=== PATIENT | male | born 1950 | race Caucasian/White ===

== ENCOUNTER → 2016-12-31 | Day surgery (SDC) | payer MEDICARE ==
[~2016-12-31] VITALS: Ht 182.9 cm; Wt 79.4 kg
[~2016-12-31] MED LIST: FOLIC ACID1 M1 PO; LEVOXYL75 MCG PO; METOPROLOL SUCC25 M1 PO; SIMVASTATIN40 M1 PO
--- NOTE | 2016-12-31 11:54 | Operative Report ---
Operative/Inv Procedure Report Surgery Date: 12/31/16 Name of Procedure: Laparoscopic left inguinal hernia repair Pre-Operative Diagnosis: Left inguinal hernia Post-Operative Diagnosis: Same Estimated Blood Loss: scant Surgeon/Lacing Operator: PRICE ROLAND,BRIGIDA Chang/Qing PRIETO Anesthesia: general endotracheal tube Implants: Parietex mesh Operative/Procedure Note Note: After consent patient brought to the operating room laid supine. Gen. anesthesia was obtained and his abdomen was prepped and draped. Skin below the umbilicus was infiltrated with local anesthesia a transverse incision made sharply. We dissected to the left-sided rectus fascia and incised transversely. Stay sutures were placed and the rectus muscles retracted laterally. The dissecting balloon was then placed on the level the pubis and inflated under direct vision the camera. It was deflated and replaced a blunt [place] port. 2, 5 mm ports were placed in the infraumbilical midline after local anesthesia was instilled and under direct vision the camera. He's placed in slight Trendelenburg. Dissection was carried forth at the pubis delineating the symphysis. There is a large direct hernia which was reflected inferiorly. Laterally we didn't fill up the iliopubic tract. There is no indirect hernia. The cord structures were dissected. A left-sided piece of Parietex mesh was placed into the cavity. It was placed about the cord structures to re-create the internal ring and cover the femoral indirect spaces. Once I was happy with the placement of mesh the gas was allowed to escape on maintaining proper orientation. CC: SHERIE ROLAND,Bailee VERA
== END ==
LOC: STS 01:13
DX: K40.90 Unilateral inguinal hernia, without obstruction or gangrene, not specified as recurrent (principal); I10 Essential (primary) hypertension; K44.9 Diaphragmatic hernia without obstruction or gangrene; E07.9 Disorder of thyroid, unspecified
CPT/HCPCS: C1781; J0131; J0690; J1100; J2250; J2405